=== PATIENT | male | born 1940 | race Caucasian/White ===

== ENCOUNTER 2018-01-29 14:01 | Day surgery (SDC) | payer MEDICARE, OTHER, SELFPAY ==
[2018-01-29] VITALS (7 sets, daily range): BP systolic 150–175; BP diastolic 94–97; PULSE 81–97; RESP 15–16; TEMP 36.2–36.4; O2SAT 94–98; BMI 29.1
--- NOTE | 2018-01-29 | DI.RAD.S_ITS ---
PROCEDURE: XR THORACIC SPINE 3V INDICATIONS: T10 KYPHOPLASTY TECHNIQUE: 4 intraoperative fluoroscopic views of the thoracic spine were acquired. COMPARISON: None. FINDINGS: Bones: Intraoperative fluoroscopic images of thoracolumbar junction shows anterior wedge compression deformity of a lower thoracic vertebral body with subsequent kyphoplasty. Exact level cannot be definitively determined. IMPRESSION: Pleural guidance was provided intraoperatively for kyphoplasty of a lower thoracic spine vertebral body. Dictated by: Angus Parker M.D. on 01/29/2018 at 18:13 Approved by: Angus Parker M.D. on 01/29/2018 at 18:14
--- NOTE | 2018-01-29 | PATH_ITS ---
[facility] Accession Number: [id number] . 01 Material submitted: . T-10 BONE . 02 Diagnosis: T10 Bone: Fragments of bone and fibrotic marrow. Negative for malignancy. MRV/02/01/2018 . 02 Electronically signed: . Larry Singer MD, PhD, Pathologist NPI- [id number] . 01 Gross description: . Received one formalin-filled container labeled with the patient's name and labeled T-10. The specimen consists of a 0.3 cm in diameter x 0.5 cm in length portion of bone. The specimen is entirely submitted in one cassette. Will be placed in decal for softening. [place] [id number] . 02 Pathologist provided ICD-10: M40.204 . 02 CPT . 976519 Specimen Comment: A duplicate report has been generated due to demographic updates. Performed at: 01 [facility] [address] [id number] MD Anthony Barber MD Phone: [phone] Performed at: 02 [facility] [address] [place], [place] [id number] MD Gm Jarquin MD Phone: [phone]
[2018-01-29] MEDS: LACTATED RINGERS 1,000 ML 42 ML IV (14:47)
--- NOTE | 2018-01-29 16:28 | SUR.OPER ---
Prone on spine table, head in foam head support, padded chest and pelvic supports, gel pad at knees, lower legs supported by pillows; nipples, genitalia and toes free of pressure, arms secured on foam padded arm boards at <90 degrees abduction. Tape over blanket at thigh secured to table.
--- NOTE | 2018-01-29 16:48 | PM.PREOP ---
Pre-operative Note Interval Note Pre-op Check: Yes History & Physical Reviewed by Physician and Yes Exam Performed Changes: No
[2018-01-29] MEDS: CEFAZOLIN 2 GM/100 ML FROZ.PIGGY IV (17:00)
--- NOTE | 2018-01-29 17:05 | P.OP_ITS ---
Operative Date/Time/Diagnoses Date of procedure: 01/29/18 Time of procedure: 17:40 Pre-op diagnosis: T10 compression fracture Back pain Post-op diagnosis: same Procedure & Clinicians Procedure: T10 kyphoplasty Same procedure as scheduled: Yes Indications: [age] year old male with intractable pain from a T10 compression fracture. They had failed conservative management and requested operative intervention. Risks and benefits of surgery were discussed and appropriate consents were obtained. Surgeon: Dyllan Guzman Click Yes if Unassisted: Yes Anesthesia Type: General Operative Notes Findings: none Closure Type: primary Specimen(s): other (T10 body) Estimated Blood Loss (mL): 1 Procedure in detail: The patient was brought to the operating room and intubated on the table. They were then rolled over to the well-padded prone position. Time-out was performed. We confirmed positioning with two fluoroscopy views. The back was prepped and draped in the standard sterile fashion. Preoperative antibiotics were given. Using fluoroscopic guidance, the planned incision site was infiltrated with Marcaine with epinephrine and injected down to the entry site of the left pedicle of T10. A small stab incision was made and we advanced a Jamshiedi needle down the left pedicle into the vertebral body. A bone biopsy was harvested from this and sent to pathology. We then passed the DFine osteotome and opened it up to create a void inside the vertebral body. We then began injecting the cement. This was done with frequent fluoroscopy imaging. There was no extravasation. The cement filled densley through all the bone inferior to the superior compression. Once we had good fill of the T10 vertebral body the injection was stopped and the trocars were removed. Final x- rays were taken. The wound was cleaned. Steri-Strips and sterile dressing were placed. Patient was rolled over, extubated, and brought to recovery without complications. Complications: none Condition: stable Disposition: PACU Plan for aftercare: Outpatient. Activity as tolerated.
[2018-01-29] MEDS: BUPIVACAINE 0.25% W/ EPI VIAL 50 ML INJ (17:20)
== END 2018-01-29 18:25 | disposition home or self-care (01) ==
PROVIDERS: Visit Provider Orthopaedic Surgery
PROC: (CPT 22513; principal; 2018-01-29 16:15)
DX: S22.070A Wedge compression fracture of T9-T10 vertebra, initial encounter for closed fracture (principal); M54.9 Dorsalgia, unspecified; M19.90 Unspecified osteoarthritis, unspecified site; G47.33 Obstructive sleep apnea (adult) (pediatric); E66.9 Obesity, unspecified
CPT/HCPCS: 22513; 72074; 76001; 88305; C1776; J0690; J2405; J2704; J3010

== ENCOUNTER → 2018-08-23 09:23 | Outpatient (CLI) | payer MEDICARE, OTHER, SELFPAY ==
--- NOTE | 2018-08-23 09:25 | DI.RAD.S_ITS ---
PROCEDURE: FL UPPER GI W AIR INDICATIONS: Persistant nausea COMPARISON: None. 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 No suspicious abdominal calcifications. Visualized solid organ contours appear normal. Bony structures appear unremarkable. Esophagus: Esophageal mucosa is normal on air-contrast views. On single-contrast views, there is decreased esophageal peristalsis. No strictures, extrinsic mass effects, or diverticula. No hiatal hernia. There is spontaneous mild gastroesophageal reflux. Stomach: The stomach is normally distensible, with normal rugal fold thickness. No mucosal masses or ulcers. Pylorus and duodenal bulb appear normal in morphology. Duodenal folds are normal in thickness as well. IMPRESSION: Esophageal dysmotility. Spontaneous mild gastroesophageal reflux Dictated by: Ketan Shields M.D. on 08/23/2018 at 11:04 Approved by: Ketan Shields M.D. on 08/23/2018 at 11:05
== END ==
PROVIDERS: PCP Internal Medicine; Visit Provider Surgery
DX: R11.0 Nausea (principal); K22.4 Dyskinesia of esophagus; K21.9 Gastro-esophageal reflux disease without esophagitis
CPT/HCPCS: 74247

== ENCOUNTER 2018-10-21 14:09 | Emergency (ER) | payer MEDICARE, OTHER, SELFPAY ==
[2018-10-21 14:16] VITALS: BP 142/96; PULSE 96; RESP 31; TEMP 36.7; BMI 25.7
--- NOTE | 2018-10-21 14:26 | DI.CT.S_ITS ---
PROCEDURE: CT ABDOMEN PELVIS WO CON INDICATIONS: diarrhea x 1 month, 4x daily, no pain, no blood. TECHNIQUE: After the administration of oral contrast, 5 mm thick sections acquired from the diaphragms to the symphysis. 5 mm coronal and sagittal reformats were performed. For radiation dose reduction, the following was used: automated exposure control, adjustment of mA and/or kV according to patient size. COMPARISON: None. FINDINGS: Image quality: Excellent. ABDOMEN: Lung bases: Rounded atelectasis, right lung base. Heart size is normal. Solid organs: Liver is normal in size. Gallbladder is unremarkable. Pancreas is normal in size. Spleen is normal in size. No adrenal nodules. Both kidneys are normal in size, without hydronephrosis or nephrolithiasis. Multiple renal cysts. The Peritoneum and bowel: Mild diffuse right colonic wall thickening. No dilated loops. Extensive sigmoid diverticulosis without evidence of diverticulitis. No free air, free fluid, or abscess cavity Nodes and vessels: No retroperitoneal or mesenteric adenopathy by size criteria. Aorta and inferior vena cava are normal in size. Atherosclerosis. Miscellaneous: No ventral hernias. PELVIS: Genitourinary: Bladder wall thickness is normal. Prostate enlargement. Miscellaneous: No inguinal hernias or adenopathy. Bones: No suspicious bony lesions. No acute vertebral body compressions. Previously treated T10 compression fracture grade moderate chronic L1 compression fracture. IMPRESSION: 1. Rounded atelectasis, right lower lobe. 2. Diffuse mild thickening of the wall of the right colon. Findings are consistent with ischemic versus infectious versus inflammatory colitis. 3. Extensive sigmoid diverticulosis without evidence of diverticulitis. 4. Prostate enlargement. 5. Atherosclerosis. 6. Osteoporosis with old compression fractures. Dictated by: Jacob Warner M.D. on 10/21/2018 at 16:20 Approved by: Jacob Warner M.D. on 10/21/2018 at 16:29
--- NOTE | 2018-10-21 14:28 | ED.NAVMDI ---
HPI - Nausea/Vomiting/Diarrhea General Chief complaint: Nausea/Vomiting/Diarrhea Stated complaint: fatigue,bedridden,diarrhea 3 weeks Time Seen by Provider: 10/21/18 14:14 Source: patient and family (Sister) Mode of arrival: wheelchair Limitations: no limitations History of Present Illness HPI Narrative: This is a pleasant 78-year-old male who comes to the emergency department with complaint of diarrhea. Patient states he has had fatigue and depression ongoing. He states that is probably part of the issue but he has also had chronic diarrhea for over a month. Patient states at the beginning of August he was started on Reglan, this was for some esophageal dysmotility. He had had an upper GI which showed that there was dysmotility. He states he got diarrhea immediately he stopped it and then tried to restarted on September 06. He took Reglan only on the and stopped and has continued to have diarrhea 4-5 times daily. Sometimes he does not realize occurring like when he is asleep and he will have incontinence. Other times he realizes coming in he can make it to the restroom. He does not always have time to make it to the bathroom. He has not noticed any decrease in urination. He states his urine is dark but it is always kind of dark. He denies any abdominal pain. He has been slightly distended but states that is not new. He is not having any vomiting. He was having nausea but they believed that this was from the dysmotility and after he started the medications not has been better. Patient has not had any fevers, he denies any chest pain or shortness of breath. He states he does have a history of CABG with valve replacement as well as bypass and Maze procedure. He has had prostate surgery, he has chronic kidney disease, and has back surgery with Dr. Guzman. Related Data Home Medications Medication Instructions Recorded Confirmed allopurinol 300 mg PO DAILY 01/29/18 10/21/18 amlodipine 5 mg PO BEDTIME 01/29/18 10/21/18 aspirin 325 mg PO BEDTIME 01/29/18 10/21/18 carvedilol 12.5 mg PO BID 01/29/18 10/21/18 colchicine [Colcrys] 0.3 mg PO DAILY 01/29/18 10/21/18 docusate sodium 200 mg PO DAILY 01/29/18 10/21/18 finasteride 5 mg PO BEDTIME 01/29/18 10/21/18 furosemide 40 mg PO QAM 01/29/18 10/21/18 pantoprazole 40 mg PO BID 01/29/18 10/21/18 potassium chloride 20 meq PO DAILY 01/29/18 10/21/18 tamsulosin 0.8 mg PO BEDTIME 01/29/18 10/21/18 zolpidem 10 mg PO BEDTIME PRN 01/29/18 10/21/18 acyclovir 400 mg tablet 400 mg PO ONCE PRN tab 08/21/18 10/21/18 Glucosamine 1 - 2 tbsp PO DAILY 10/21/18 10/21/18 Optifiber 4 tsp PO DAILY 10/21/18 10/21/18 acetaminophen 1 dose PO PRN PRN 10/21/18 10/21/18 cholecalciferol (vitamin D3) 2,000 unit PO DAILY 10/21/18 10/21/18 [Vitamin D3] cyanocobalamin (vitamin B-12) 2,500 mcg SUBLINGUAL DAILY 10/21/18 10/21/18 [Vitamin B-12] doxylamine succinate 25 mg PO BEDTIME PRN 10/21/18 10/21/18 flaxseed oil 1,400 mg PO Q OTHER DAY 10/21/18 10/21/18 multivitamin 1 tab PO DAILY 10/21/18 10/21/18 [id number] oil [Fish 1,200 mg PO Q OTHER DAY 10/21/18 10/21/18 Oil] red yeast rice 600 mg PO BID 10/21/18 10/21/18 Previous Rx's Medication Instructions Recorded prednisone See Rx Instructions .ROUTE 10/21/18 .COMPLEX #31 each Allergies Allergy/AdvReac Type Severity Reaction Status Date / Time No Known Drug Allergies Allergy Verified 10/21/18 14:19 Review of Systems Review of Systems ROS Unobtainable: All systems reviewed & are unremarkable except as noted in HPI and below Constitutional Denies chills, Denies fever(s), Denies lethargy and Denies weakness Cardiovascular Denies chest pain, Denies syncope, Denies edema, Denies irregular heart rhythm, Denies lightheadedness, Denies palpitations, Denies dyspnea, Denies dyspnea on exertion and Denies orthopnea Respiratory Denies chest congestion, Denies cough, Denies dyspnea, Denies dyspnea on exertion and Denies wheezing Gastrointestinal Gastrointestinal: Denies abdominal pain, Denies melena, Denies hematochezia, Denies change in bowel habits, Denies tenesmus, Reports change in stool character, Denies constipation, Reports early satiety, Denies dyspepsia, Reports diarrhea, Reports loose stools, Reports nausea (improving) and Denies vomiting Genitourinary Denies hematuria, Denies flank pain, Denies urinary frequency, Denies urinary hesitancy, Denies urinary incontinence, Denies urinary urgency and Reports other (dark urine, patient states not new.) Neurologic Denies syncope and Denies weakness Endocrine Denies palpitations Allergic/Immunologic Denies wheezing [facility] Medical History (Updated 10/21/18 @ 16:37 by Clementine Benson DO) CKD (chronic kidney disease) stage 3, GFR 30-59 ml/min (Chronic) Dyslipidemia (Chronic) Hypertension (Chronic) Family History Father Heart disease Social History household members: significant other occupational status: previously employed Social History (Updated 10/21/18 @ 14:37 by Clementine Benson DO) details: partner. household members: significant other occupational status: previously employed other: Lives in duplex with partner, sister and her spouse live on the other side. Exam Narrative Exam Narrative: GEN: well nourished, well appearing elderly male, alert and oriented x 3, patient appears to be in no acute distress. HEENT: Atraumatic, pupils are equal round reactive to light, extraocular movements are intact, nares are clear. HEART: Regular rate and rhythm without murmur, clicks, rubs. LUNGS:Lungs clear to auscultation, no wheezes, rales, crackles, chest moves symmetrically ABD:bowel sounds normal, soft, non-tender, no guarding, rebound, rigidity, no masses noted, no hepatosplenomegaly :No CVA tenderness MSCL: Non-tender, no muscle atrophy, muscles strength 5/5 upper and lower extremities, full range of motion NEURO:CN 2-12 intact, sensation normal Initial Vital Signs Initial Vital Signs: Vital Signs Temperature 98.0 F 10/21/18 14:16 Pulse Rate 96 H 10/21/18 14:16 Respiratory Rate 31 H 10/21/18 14:16 Blood Pressure 142/96 H 10/21/18 14:16 Course Orders Ordered: ED Orders 10/21/18 14:20 Complete Blood Count AUTO DIFF Stat Comprehensive Metabolic Panel Stat Lipase Stat Procalcitonin Stat Thyroid Stimulating Hormone Stat Troponin & CK Cardiac Panel Stat 10/21/18 14:26 CT abdomen pelvis wo con Stat 10/21/18 15:40 GI Panel (Film Array) Stat Discontinued Medications Sodium Chloride (Normal Saline 0.9%) 1,000 mls @ 1,000 mls/hr IV BOLUS ONE Stop: 10/21/18 15:25 Last Infusion: 10/21/18 16:27 Dose: 0 mls/hr Admin: 10/21/18 14:30 Dose: 1,000 mls/hr Methylprednisolone (Solu-Medrol 125 Mg Vial) 125 mg IV NOW ONE Stop: 10/21/18 16:38 Last Admin: 10/21/18 17:29 Dose: 125 mg Vital Signs - 8 hr 10/21/18 14:16 10/21/18 15:39 10/21/18 16:00 Temperature 98.0 F Pulse Rate 96 H 82 85 Respiratory Rate 31 H 20 Blood Pressure 142/96 H Blood Pressure [Right Arm] 143/90 H 124/81 Pulse Oximetry 99 10/21/18 16:15 10/21/18 17:30 Temperature Pulse Rate 85 83 Respiratory Rate 19 15 Blood Pressure Blood Pressure [Right Arm] 117/72 128/85 Pulse Oximetry 98 98 MDM - Nausea/Vomiting/Diarrhea Lab Data Attestation: I reviewed the patient's lab results. Result diagrams: 10/21/18 14:20 10/21/18 14:20 Lab Results 10/21/18 10/21/18 10/21/18 Range/Units 14:20 14:20 14:20 WBC 6.7 (4.5-11.0) X10^3/uL RBC 4.68 (4.5-5.9) X10^6/uL Hgb 14.5 (13.5-17.5) g/dL Hct 43.4 (41-53) % MCV 92.7 (80-100) fL MCH 31.0 (26-34) PG MCHC 33.4 (30-36) % RDW 14.8 (11.6-14.8) % Plt Count 162 (150-400) X10^3/uL Neut % (Auto) 66.9 (50-75) % Lymph % (Auto) 16.5 L (25-40) % [place] % (Auto) 13.9 (3-14) % Eos % (Auto) 1.9 L (2-4) % Baso % (Auto) 0.8 (0-2) % Neut # (Auto) 4500 (7281-3577) /uL Lymph # (Auto) 1100 (4319-4895) /uL [place] # (Auto) 900 (0-900) /uL Eos # (Auto) 100 (0-450) /uL Baso # (Auto) 100 (0-100) /uL Sodium 143 (137-145) mmol/L Potassium 4.3 (3.4-5.1) mmol/L Chloride 102 (98-107) mmol/L Carbon Dioxide 28 (22-32) mmol/L BUN 37 H (9-20) mg/dL Creatinine 2.20 H (0.66-1.25) mg/dL Estimated GFR 29.2 L (>60) mL/min BUN/Creatinine Ratio 16.8 (6-22) Glucose 106 (80-110) mg/dL Calcium 10.1 (8.4-10.2) mg/dL Total Bilirubin 0.7 (0.2-1.3) mg/dL AST 29 (17-59) IU/L ALT 20 L (21-72) IU/L Alkaline Phosphatase 76 (38-126) U/L Total Creatine Kinase (55-170) U/L CK-MB (CK-2) CK-MB (CK-2) Rel Index Troponin I (0.01-0.034) ng/mL Total Protein 7.4 (6.3-8.2) g/dL Albumin 4.2 (3.5-5.0) g/dL Globulin 3.2 (1.7-4.1) g/dL Albumin/Globulin Ratio 1.3 (1.0-2.8) Lipase 108 (23-300) U/L Procalcitonin 0.09 (<0.5) ng/mL TSH (0.47-4.68) uIU/mL Stl C. cayetanensis PCR (Not Detect) Stool Rotavirus (PCR) (Not Detect) Stool Adenovirus (PCR) (Not Detect) Stool Astrovirus (PCR) (Not Detect) Stool Cryptosporidium PCR (Not Detect) Stl E.coli Shiga Tox PCR (Not Detect) St Sh/Enteroin Ecoli PCR (Not Detect) Stool E coli O157 PCR Stl Enterotoxigenic E PCR (Not Detect) Stool EPEC (PCR) (Not Detect) Stl E. histolytica PCR (Not Detect) Stool Giardia Lamblia PCR (Not Detect) Stl P. shigelloides PCR (Not Detect) St Y.enterocolitica PCR (Not Detect) Stool Vibrio (PCR) (Not Detect) Stl Vibrio cholerae PCR (Not Detect) Stl Enteroaggr Ecoli PCR (Not Detect) Stl Norovirus GI/GII PCR (Not Detect) Campylobacter (PCR) (Not Detect) C. difficile Tox (PCR) (Not Detect) Salmonella (PCR) (Not Detect) 10/21/18 10/21/18 10/21/18 Range/Units 14:20 14:20 15:40 WBC (4.5-11.0) X10^3/uL RBC (4.5-5.9) X10^6/uL Hgb (13.5-17.5) g/dL Hct (41-53) % MCV (80-100) fL MCH (26-34) PG MCHC (30-36) % RDW (11.6-14.8) % Plt Count (150-400) X10^3/uL Neut % (Auto) (50-75) % Lymph % (Auto) (25-40) % [place] % (Auto) (3-14) % Eos % (Auto) (2-4) % Baso % (Auto) (0-2) % Neut # (Auto) (0749-6872) /uL Lymph # (Auto) (9535-4130) /uL [place] # (Auto) (0-900) /uL Eos # (Auto) (0-450) /uL Baso # (Auto) (0-100) /uL Sodium (137-145) mmol/L Potassium (3.4-5.1) mmol/L Chloride (98-107) mmol/L Carbon Dioxide (22-32) mmol/L BUN (9-20) mg/dL Creatinine (0.66-1.25) mg/dL Estimated GFR (>60) mL/min BUN/Creatinine Ratio (6-22) Glucose (80-110) mg/dL Calcium (8.4-10.2) mg/dL Total Bilirubin (0.2-1.3) mg/dL AST (17-59) IU/L ALT (21-72) IU/L Alkaline Phosphatase (38-126) U/L Total Creatine Kinase 30 L (55-170) U/L CK-MB (CK-2) TNP CK-MB (CK-2) Rel Index TNP Troponin I 0.017 (0.01-0.034) ng/mL Total Protein (6.3-8.2) g/dL Albumin (3.5-5.0) g/dL Globulin (1.7-4.1) g/dL Albumin/Globulin Ratio (1.0-2.8) Lipase (23-300) U/L Procalcitonin (<0.5) ng/mL TSH 1.57 (0.47-4.68) uIU/mL Stl C. cayetanensis PCR Not detected (Not Detect) Stool Rotavirus (PCR) Not detected (Not Detect) Stool Adenovirus (PCR) Not detected (Not Detect) Stool Astrovirus (PCR) Not detected (Not Detect) Stool Cryptosporidium PCR Not detected (Not Detect) Stl E.coli Shiga Tox PCR Not detected (Not Detect) St Sh/Enteroin Ecoli PCR Not detected (Not Detect) Stool E coli O157 PCR Not Reportable Stl Enterotoxigenic E PCR Not detected (Not Detect) Stool EPEC (PCR) Not detected (Not Detect) Stl E. histolytica PCR Not detected (Not Detect) Stool Giardia Lamblia PCR Not detected (Not Detect) Stl P. shigelloides PCR Not detected (Not Detect) St Y.enterocolitica PCR Not detected (Not Detect) Stool Vibrio (PCR) Not detected (Not Detect) Stl Vibrio cholerae PCR Not detected (Not Detect) Stl Enteroaggr Ecoli PCR Not detected (Not Detect) Stl Norovirus GI/GII PCR Not detected (Not Detect) Campylobacter (PCR) Not detected (Not Detect) C. difficile Tox (PCR) Not detected (Not Detect) Salmonella (PCR) Not detected (Not Detect) Point of Care Testing Stool Occult Blood Negative Urine Dip Bedside Urine Glucose Negative Bedside Urine Bilirubin - Negative Bedside Urine Ketone - Negative Urine Specific [place] 1.015 Bedside Urine Occult Blood - Negative Bedside Urine pH 6.0 Bedside Urine Protein - Negative Bedside Urine Urobilinogen - Negative Bedside Urine Nitrite - Negative Bedside Urine Leukocytes - Negative Esterase Imaging Data CT scan - abdomen: Radiologist's impression: [address] [address] [address] Scan Report Signed Patient: Jaxon Clemons [facility]#: [id number] : 2Acct:[id number] Age/Sex: 78 / MDate of Service: 10/21/18 Loc: ED Accession Number: [id number] Procedure: CT abdomen pelvis wo con Ordering Provider: Clementine Benson D.O. PROCEDURE: CT ABDOMEN PELVIS WO CON INDICATIONS: diarrhea x 1 month, 4x daily, no pain, no blood. TECHNIQUE: After the administration of oral contrast, 5 mm thick sections acquired from the diaphragms to the symphysis. 5 mm coronal and sagittal reformats were performed. For radiation dose reduction, the following was used: automated exposure control, adjustment of mA and/or kV according to patient size. COMPARISON: None. FINDINGS: Image quality: Excellent. ABDOMEN: Lung bases: Rounded atelectasis, right lung base. Heart size is normal. Solid organs: Liver is normal in size. Gallbladder is unremarkable. Pancreas is normal in size. Spleen is normal in size. No adrenal nodules. Both kidneys are normal in size, without hydronephrosis or nephrolithiasis. Multiple renal cysts. The Peritoneum and bowel: Mild diffuse right colonic wall thickening. No dilated loops. Extensive sigmoid diverticulosis without evidence of diverticulitis. No free air, free fluid, or abscess cavity Nodes and vessels: No retroperitoneal or mesenteric adenopathy by size criteria. Aorta and inferior vena cava are normal in size. Atherosclerosis. Miscellaneous: No ventral hernias. PELVIS: Genitourinary: Bladder wall thickness is normal. Prostate enlargement. Miscellaneous: No inguinal hernias or adenopathy. Bones: No suspicious bony lesions. No acute vertebral body compressions. Previously treated T10 compression fracture grade moderate chronic L1 compression fracture. IMPRESSION: 1. Rounded atelectasis, right lower lobe. 2. Diffuse mild thickening of the wall of the right colon. Findings are consistent with ischemic versus infectious versus inflammatory colitis. 3. Extensive sigmoid diverticulosis without evidence of diverticulitis. 4. Prostate enlargement. 5. Atherosclerosis. 6. Osteoporosis with old compression fractures. Dictated by: Jacob Warner M.D. on 10/21/2018 at 16:20 Approved by: Jacob Warner M.D. on 10/21/2018 at 16:29 ECG Data Attestation: I personally reviewed and interpreted this ECG as follows: Prior ECG tracings: not available for review Interpretation: Sinus rhythm incomplete right bundle branch, rate 85 P are 156 stress a 99 QTC of 428. No prior EKGs available. MDM Narrative Medical decision making narrative: Patient's lab work does not show any major abnormalities, CBC is normal, creatinine is 2.2. Per patient his baseline is around the 2.4 to 2.2 range he states he has chronic kidney disease and follows with a electric lineman. He states he has stage III his troponin as well as abdominal labs are otherwise normal. TSH and procalcitonin are negative. Stool is negative. CT of the abdomen pelvis with oral contrast shows thickening of the colon consistent with colitis, patient has no suspicious findings for ischemic colitis, with a normal white count procalcitonin negative PCR my suspicion for infectious is much lower and I suspect this is inflammatory he has diverticulosis but no signs of diverticulitis. Plan for steroids, patient has also been depressed recently. No suicidal thoughts but we discussed that he should talk to his doctor. Being ill can also make any mental health issues worse. Patient is comfortable with the plan he would like to return home. We discussed signs symptoms to watch for and reasons to return emergently. Discharge Plan Departure Patient Disposition: Home Clinical Impression: Diarrhea, Colitis Instructions: DI for Colitis Activity Restrictions/Additional Instructions: Follow-up with your primary care the next 24-48 hours for recheck, call for an appointment. Continue prednisone once daily until gone. Start your oral prednisone tomorrow, you received the 1st dose through the IV here in the ER today. Take prednisone with food. Return to the emergency department for fevers greater than 100.4 F black or bloody stools, lightheadedness or passing out, new chest pain, shortness of breath, new abdominal pain, if you are not urinating or other new or concerning symptoms. Prescriptions: New prednisone 10 mg tablets,dose pack See Rx Instructions .ROUTE .COMPLEX Qty: 31 RF: 0 No Action acyclovir 400 mg tablet 400 mg PO ONCE PRN (Reason: for cold sores) RF: 0 acetaminophen 325 mg Tablet 1 dose PO PRN PRN (Reason: pain) RF: 0 doxylamine succinate 25 mg Tablet 25 mg PO BEDTIME PRN (Reason: Insomnia) RF: 0 Glucosamine powder 1 - 2 tbsp PO DAILY RF: 0 Optifiber powder 4 tsp PO DAILY RF: 0 multivitamin Tablet 1 tab PO DAILY RF: 0 cyanocobalamin (vitamin B-12) [Vitamin B-12] 2,500 mcg Tablet, Sublingual 2,500 mcg SUBLINGUAL DAILY RF: 0 red yeast rice 600 mg Capsule 600 mg PO BID RF: 0 cholecalciferol (vitamin D3) [Vitamin D3] 2,000 unit Capsule 2,000 unit PO DAILY RF: 0 Fish Oil 120 mg-180 mg- 60 mg-1,200 mg Capsule,Delayed Release(Dr/Ec) 1,200 mg PO Q OTHER DAY RF: 0 flaxseed oil 1,400 mg 1,400 mg PO Q OTHER DAY RF: 0 furosemide 40 mg Tablet 40 mg PO QAM RF: 0 carvedilol 12.5 mg Tablet 12.5 mg PO BID RF: 0 aspirin 325 mg Tablet 325 mg PO BEDTIME RF: 0 amlodipine 5 mg Tablet 5 mg PO BEDTIME RF: 0 tamsulosin 0.4 mg Capsule 0.8 mg PO BEDTIME RF: 0 pantoprazole 40 mg Tablet,Delayed Release (Dr/Ec) 40 mg PO BID RF: 0 allopurinol 300 mg Tablet 300 mg PO DAILY RF: 0 zolpidem 10 mg Tablet 10 mg PO BEDTIME PRN (Reason: Insomnia) RF: 0 colchicine [Colcrys] 0.6 mg Tablet 0.3 mg PO DAILY RF: 0 docusate sodium 100 mg Tablet 200 mg PO DAILY RF: 0 finasteride 5 mg Tablet 5 mg PO BEDTIME RF: 0 potassium chloride 20 mEq Tablet Extended Release 20 meq PO DAILY RF: 0 Referrals: Isai Hughes MD [Primary Care Provider] -
[2018-10-21] MEDS: SODIUM CHLORIDE 0.9% 1,000 ML 1000 ML IV (14:30)
[2018-10-21 14:35] LABS: Add Manual Diff / Slide Review NO; Basophils Absolute Auto 100 /uL (0-100); Basophils Percent Auto 0.8 % (0-2); Eosinophils Absolute Auto 100 /uL (0-450); Eosinophils Percent Auto 1.9 % (2-4); Hematocrit 43.4 % (41-53); Hemoglobin 14.5 g/dL (13.5-17.5); Lymphocytes Absolute Auto 1100 /uL (1100-4500); Lymphocytes Percent Auto 16.5 % (25-40); Mean Corpuscular HGB Conc 33.4 % (30-36); Mean Corpuscular Volume 92.7 fL (80-100); Monocytes Absolute Auto 900 /uL (0-900); Monocytes Percent Auto 13.9 % (3-14); Neutrophils Absolute Auto 4500 /uL (1500-7000); Neutrophils Percent Auto 66.9 % (50-75); Platelet Count 162 X10^3/uL (150-400); Red Blood Cell Count 4.68 X10^6/uL (4.5-5.9); Red Cell Distribution Width 14.8 % (11.6-14.8); White Blood Cell Count 6.7 X10^3/uL (4.5-11.0)
[2018-10-21 14:44] LABS: Alanine Aminotransferase 20 IU/L (21-72); Albumin 4.2 g/dL (3.5-5.0); Albumin Globulin Ratio 1.3 (1.0-2.8); Alkaline Phosphatase 76 U/L (38-126); Aspartate Aminotransferase 29 IU/L (17-59); BUN Creatinine Ratio 16.8 (6-22); Bilirubin Total 0.7 mg/dL (0.2-1.3); Blood Urea Nitrogen 37 mg/dL (9-20); Calcium 10.1 mg/dL (8.4-10.2); Carbon Dioxide 28 mmol/L (22-32); Chloride 102 mmol/L (98-107); Creatine Kinase 30 U/L (55-170); Estimated Glomerular Filt Rate 29.2 mL/min (>60); Globulin 3.2 g/dL (1.7-4.1); Glucose 106 mg/dL (80-110); HEMOLYSIS 17 (0-50); Lipase 108 U/L (23-300); Potassium 4.3 mmol/L (3.4-5.1); Sodium 143 mmol/L (137-145); Total Protein 7.4 g/dL (6.3-8.2)
[2018-10-21 14:56] LABS: Troponin I 0.017 ng/mL (0.01-0.034)
[2018-10-21 15:06] LABS: Procalcitonin 0.09 ng/mL (<0.5)
[2018-10-21 15:26] LABS: Thyroid Stimulating Hormone 1.57 uIU/mL (0.47-4.68)
[2018-10-21 15:39] VITALS: BP 143/90; PULSE 82; O2SAT 99
[2018-10-21 16:00] VITALS: BP 124/81; PULSE 85; RESP 20
[2018-10-21 16:15] VITALS: BP 117/72; PULSE 85; RESP 19; O2SAT 98
[2018-10-21 17:14] LABS: Adenovirus F 40/41 Not Detected (Not Detect); Astrovirus Not Detected (Not Detect); Campylobacter Not Detected (Not Detect); Clostridium difficile toxin AB Not Detected (Not Detect); Cryptosporidium Not Detected (Not Detect); Cyclospora cayetanensis Not Detected (Not Detect); Entamoeba histolytica Not Detected (Not Detect); Enteroaggregative E.coli Not Detected (Not Detect); Enteropathogenic E.coli Not Detected (Not Detect); Enterotoxigenic E.coli It/st Not Detected (Not Detect); Giardia lamblia Not Detected (Not Detect); Norovirus GI/GII Not Detected (Not Detect); Plesiomonsa shigelloides Not Detected (Not Detect); Rotavirus A Not Detected (Not Detect); Salmonella Not Detected (Not Detect); Shiga-like toxin-prod E.coli Not Detected (Not Detect); Shigella/Enteroinvasive E.coli Not Detected (Not Detect); Vibrio Not Detected (Not Detect); Vibrio cholerae Not Detected (Not Detect); Yersinia enterocolitica Not Detected (Not Detect)
[2018-10-21] MEDS: methylPREDNISolone 125 MG/2 ML VIAL IV (17:29)
[2018-10-21 17:30] VITALS: BP 128/85; PULSE 83; RESP 15; O2SAT 98
[2018-10-21 18:40] VITALS: BP 118/75; PULSE 87; RESP 16; O2SAT 98
== END 2018-10-21 18:40 | disposition home or self-care (01) ==
PROVIDERS: Emergency Provider Emergency Medicine; PCP Internal Medicine
DX: K52.9 Noninfective gastroenteritis and colitis, unspecified (principal); R53.83 Other fatigue; Z95.1 Presence of aortocoronary bypass graft; N18.3 Chronic kidney disease, stage 3 (moderate); I10 Essential (primary) hypertension; Z79.82 Long term (current) use of aspirin
CPT/HCPCS: 36591; 74176; 80053; 81003; 82272; 82550; 83690; 84145; 84443; 84484; 85025; 87507; 93005; 93010; 96361; 96374; 99283; 99285; J2930

== ENCOUNTER 2018-11-05 11:00 | Emergency (ER) | payer MEDICARE, OTHER, SELFPAY ==
[2018-11-05 11:05] VITALS: BP 118/76; PULSE 90; RESP 18; TEMP 36.5; O2SAT 98
[2018-11-05 11:49] LABS: Add Manual Diff / Slide Review NO; Basophils Absolute Auto 100 /uL (0-100); Basophils Percent Auto 0.7 % (0-2); Eosinophils Absolute Auto 100 /uL (0-450); Eosinophils Percent Auto 1.2 % (2-4); Hematocrit 40.6 % (41-53); Hemoglobin 13.7 g/dL (13.5-17.5); Lymphocytes Absolute Auto 1200 /uL (1100-4500); Lymphocytes Percent Auto 14.4 % (25-40); Mean Corpuscular HGB Conc 33.9 % (30-36); Mean Corpuscular Hemoglobin 31.5 PG (26-34); Mean Corpuscular Volume 92.9 fL (80-100); Monocytes Absolute Auto 600 /uL (0-900); Neutrophils Absolute Auto 6100 /uL (1500-7000); Neutrophils Percent Auto 75.7 % (50-75); Platelet Count 100 X10^3/uL (150-400); Red Blood Cell Count 4.37 X10^6/uL (4.5-5.9); Red Cell Distribution Width 15.5 % (11.6-14.8)
[2018-11-05 11:54] LABS: Prothrombin Time 11.8 SECONDS (10.1-12.7)
[2018-11-05 11:57] LABS: PTT Partial Thromboplastin Tim 29 SECONDS (26.4-36.2)
[2018-11-05 12:00] VITALS: BP 113/70; PULSE 83; O2SAT 94
[2018-11-05 12:00] LABS: Alanine Aminotransferase 23 IU/L (21-72); Albumin 4.1 g/dL (3.5-5.0); Albumin Globulin Ratio 1.3 (1.0-2.8); Alkaline Phosphatase 77 U/L (38-126); Aspartate Aminotransferase 22 IU/L (17-59); BUN Creatinine Ratio 16.4 (6-22); Blood Urea Nitrogen 36 mg/dL (9-20); Calcium 9.6 mg/dL (8.4-10.2); Carbon Dioxide 25 mmol/L (22-32); Chloride 100 mmol/L (98-107); Creatine Kinase < 20 U/L (55-170); Estimated Glomerular Filt Rate 29.2 mL/min (>60); Globulin 3.1 g/dL (1.7-4.1); Glucose 124 mg/dL (80-110); HEMOLYSIS < 15 (0-50); Lipase 255 U/L (23-300); Potassium 4.3 mmol/L (3.4-5.1); Sodium 139 mmol/L (137-145); Total Protein 7.2 g/dL (6.3-8.2)
[2018-11-05 12:12] LABS: B Type Natriuretic Peptide 113 (<100); Troponin I 0.036 ng/mL (0.01-0.034)
[2018-11-05 13:00] VITALS: BP 117/74; PULSE 83; RESP 15; O2SAT 94
--- NOTE | 2018-11-05 13:51 | ED.WEAKNESS ---
HPI - Weakness General Chief complaint: Weakness Stated complaint: weak,'getting a test' Time Seen by Provider: 11/05/18 11:23 Source: patient Mode of arrival: ambulatory Limitations: no limitations History of Present Illness HPI Narrative: Patient comes to the emergency department complaining of chronic nausea and weight loss. Patient has had issues with swallowing and nausea for the last 2-3 years, but states that his symptoms have been worse over the last few months. He had an upper GI in July, which showed esophageal dysmotility, after which he was put on Reglan. Patient states the Reglan helped, but that shortly after starting it, he developed diarrhea, which he attributed to the Reglan. States he stopped the Reglan immediately, but the diarrhea persisted. Patient was ultimately seen here in the emergency department, and diagnosed with colitis. Patient states his colitis is cleared up, and he has been on Zofran which has helped his nausea, but that he has gotten progressively weaker from not eating. Patient states he tries to eat, but feels as though the food does not want to go down, and so he does not eat very much. Patient states that now, he does not even want to think about eating because it seems like too much work to do so. Patient states he has a primary care physician in [place], and thinks his doctor wants him to get an endoscopy, but he is not sure. Dr. Thompson has seen the patient, and while the patient was on Reglan and doing better, she did note that EGD would not be planned for the immediate future. Patient denies fevers or chills. No abdominal pain. No other complaints at this time. Related Data Home Medications Medication Instructions Recorded Confirmed allopurinol 300 mg PO DAILY 01/29/18 11/05/18 amlodipine 5 mg PO BEDTIME 01/29/18 11/05/18 aspirin 325 mg PO BEDTIME 01/29/18 11/05/18 carvedilol 12.5 mg PO BID 01/29/18 11/05/18 docusate sodium 200 mg PO DAILY 01/29/18 11/05/18 finasteride 5 mg PO BEDTIME 01/29/18 11/05/18 furosemide 40 mg PO BID 01/29/18 11/05/18 pantoprazole 40 mg PO BID 01/29/18 11/05/18 potassium chloride 20 meq PO DAILY 01/29/18 11/05/18 tamsulosin 0.4 mg PO BID 01/29/18 11/05/18 zolpidem 10 mg PO BEDTIME PRN 01/29/18 11/05/18 acyclovir 400 mg tablet 400 mg PO PRN PRN tab 08/21/18 11/05/18 Glucosamine 1 - 2 tbsp PO DAILY 10/21/18 11/05/18 Optifiber 4 tsp PO DAILY 10/21/18 11/05/18 acetaminophen 1 dose PO PRN PRN 10/21/18 11/05/18 cholecalciferol (vitamin D3) 2,000 unit PO DAILY 10/21/18 11/05/18 [Vitamin D3] cyanocobalamin (vitamin B-12) 2,500 mcg SUBLINGUAL DAILY 10/21/18 11/05/18 [Vitamin B-12] doxylamine succinate 25 mg PO BEDTIME PRN 10/21/18 11/05/18 flaxseed oil 1,400 mg PO Q OTHER DAY 10/21/18 11/05/18 multivitamin 1 tab PO DAILY 10/21/18 11/05/18 [id number] oil [Fish 1,200 mg PO Q OTHER DAY 10/21/18 11/05/18 Oil] red yeast rice 600 mg PO BID 10/21/18 11/05/18 fluoxetine 40 mg PO DAILY 11/05/18 11/05/18 Allergies Allergy/AdvReac Type Severity Reaction Status Date / Time No Known Drug Allergies Allergy Verified 11/05/18 11:13 Review of Systems Constitutional Denies chills, Denies fever(s), Denies lethargy and Denies weakness Eyes Denies change in vision, Denies eye discharge, Denies irritation and Denies loss of vision ENT Ears, Nose, Mouth, and Throat: Denies change in voice, Denies neck pain and Denies sore throat Cardiovascular Denies chest pain, Denies irregular heart rhythm, Denies lightheadedness, Denies palpitations, Denies dyspnea, Denies dyspnea on exertion and Denies orthopnea Respiratory Denies cough, Denies dyspnea, Denies dyspnea on exertion and Denies wheezing Gastrointestinal Gastrointestinal: Denies abdominal pain, Denies change in bowel habits, Denies diarrhea, Reports nausea and Denies vomiting Genitourinary Denies hematuria, Denies flank pain, Denies urinary incontinence and Denies urinary urgency Musculoskeletal Denies neck pain Integumentary/Breasts Denies pruritus, Denies erythema, Denies rash and Denies wounds Neurologic Denies confusion, Denies loss of vision and Denies weakness Psychiatric Denies anxiety, Denies confusion, Denies depression, Denies homicidal ideation and Denies suicidal ideation Endocrine Denies palpitations Hematologic/Lymphatic Denies easy bruising Allergic/Immunologic Denies wheezing [facility] Medical History CKD (chronic kidney disease) stage 3, GFR 30-59 ml/min (Chronic) Dyslipidemia (Chronic) Hypertension (Chronic) Family History Father Heart disease Social History (Updated 10/21/18 @ 14:37 by Clementine Benson DO) details: partner. household members: significant other occupational status: previously employed other: Lives in duplex with partner, sister and her spouse live on the other side. Smoking Status: Never smoker Family History Father Heart disease Social History details: partner. household members: significant other occupational status: previously employed other: Lives in duplex with partner, sister and her spouse live on the other side. Smoking Status: Never smoker Exam Initial Vital Signs Initial Vital Signs: Vital Signs Temperature 97.7 F 11/05/18 11:05 Pulse Rate 90 11/05/18 11:05 Respiratory Rate 18 11/05/18 11:05 Blood Pressure 118/76 11/05/18 11:05 Pulse Oximetry 98 11/05/18 11:05 Const General: cooperative and well developed Nutritional Appearance: well nourished Orientation: alert, awake, oriented x3 and not confused [facility] Head: normocephalic and atraumatic Ears: external ears normal Nose: external nose normal and No nasal discharge Face and sinus: face symmetric and No dry mucous membranes Mouth: oral mucosae normal and moist mucous membranes Teeth and gingiva: dentition normal Eyes General: appearance normal, both eyes and all related structures Eyelids: eyelids normal Conjunctivae: conjunctivae normal Sclera: sclerae normal Pupils: PERRL EOM: EOM intact bilaterally Neck Neck: normal visual inspection, trachea midline, No lymphadenopathy, No midline deformity and No JVD Lymphatic: No lymphedema Chest Chest: normal inspection of the chest Resp Effort & Inspection: normal respiratory effort, able to speak in complete sentences, no respiratory distress and no use of accessory muscles Auscultation: clear to auscultation bilaterally, no rales, no rhonchi and no wheezes Cardio Rate: regular rate Rhythm: regular rhythm Heart Sounds: no click, no gallops, no murmurs and no rubs Pulses: normal peripheral pulses GI Inspection: non-distended Palpation: soft, no hepatosplenomegaly, No guarding, No pulsatile mass and No tender Back/Spine/Pelvis Back: No CVA tenderness Cervical Spine: cervical ROM normal and No pain with cervical ROM Thoracic/Lumbar Spine: thoracic and lumbar spine normal to inspection Skin General: no rashes or lesions noted, No jaundice and No petechiae Neuro General: alert, oriented x3, gait normal and no focal motor deficits Speech: speech normal Extrem General: full ROM, no clubbing, cyanosis or edema, no pedal edema and no calf tenderness Psych Appearance: well kempt Mental Status: mental status grossly normal Attitude: cooperative Thought Content: normal and suicidality Judgment: judgment good Course Course Narrative: The patient was worked up with laboratory studies, and treated with IV fluids. Speech pathology was consulted, and patient was given IV Zofran and soft food. Patient was found to be tolerating Ensure very well in the emergency department. I have discussed with the patient and his family that EGD is not performed emergently under the circumstances, and that he will need to follow up with Dr. Thompson to discuss EGD. I have spoken Dr. Thompson, and she states she is happy to see the patient again. We have discussed the usual indications for return. Orders Ordered: Discontinued Medications Sodium Chloride (Normal Saline 0.9%) 1,000 mls @ 1,000 mls/hr IV BOLUS ONE Stop: 11/05/18 15:01 Last Infusion: 11/05/18 15:17 Dose: 0 mls/hr Admin: 11/05/18 14:02 Dose: 1,000 mls/hr Ondansetron HCl (Zofran) 4 mg IV NOW ONE Stop: 11/05/18 13:52 Last Admin: 11/05/18 14:02 Dose: 4 mg Vital Signs - 8 hr 11/05/18 11:05 11/05/18 12:00 11/05/18 13:00 Temperature 97.7 F Pulse Rate 90 83 83 Respiratory Rate 18 15 Blood Pressure 118/76 Blood Pressure [Right Arm] 113/70 117/74 Pulse Oximetry 98 94 94 MDM - Weakness Medical Records Attestation: I reviewed the patient's medical records. Lab Data Attestation: I reviewed the patient's lab results. Result diagrams: 11/05/18 11:25 11/05/18 11:25 Lab Results 11/05/18 11/05/18 11/05/18 Range/Units 11:25 11:25 11:25 WBC 8.0 (4.5-11.0) X10^3/uL RBC 4.37 L (4.5-5.9) X10^6/uL Hgb 13.7 (13.5-17.5) g/dL Hct 40.6 L (41-53) % MCV 92.9 (80-100) fL MCH 31.5 (26-34) PG MCHC 33.9 (30-36) % RDW 15.5 H (11.6-14.8) % Plt Count 100 L (150-400) X10^3/uL Neut % (Auto) 75.7 H (50-75) % Lymph % (Auto) 14.4 L (25-40) % [place] % (Auto) 8.0 (3-14) % Eos % (Auto) 1.2 L (2-4) % Baso % (Auto) 0.7 (0-2) % Neut # (Auto) 6100 (1573-9740) /uL Lymph # (Auto) 1200 (0384-5046) /uL [place] # (Auto) 600 (0-900) /uL Eos # (Auto) 100 (0-450) /uL Baso # (Auto) 100 (0-100) /uL PT 11.8 (10.1-12.7) SECONDS INR 1.0 (0.9-1.3) APTT 29 (26.4-36.2) SECONDS Sodium 139 (137-145) mmol/L Potassium 4.3 (3.4-5.1) mmol/L Chloride 100 (98-107) mmol/L Carbon Dioxide 25 (22-32) mmol/L BUN 36 H (9-20) mg/dL Creatinine 2.20 H (0.66-1.25) mg/dL Estimated GFR 29.2 L (>60) mL/min BUN/Creatinine Ratio 16.4 (6-22) Glucose 124 H (80-110) mg/dL Calcium 9.6 (8.4-10.2) mg/dL Total Bilirubin 1.0 (0.2-1.3) mg/dL AST 22 (17-59) IU/L ALT 23 (21-72) IU/L Alkaline Phosphatase 77 (38-126) U/L Total Creatine Kinase < 20 L (55-170) U/L CK-MB (CK-2) TNP CK-MB (CK-2) Rel Index TNP Troponin I 0.036 H (0.01-0.034) ng/mL B-Natriuretic Peptide 113 H (<100) Total Protein 7.2 (6.3-8.2) g/dL Albumin 4.1 (3.5-5.0) g/dL Globulin 3.1 (1.7-4.1) g/dL Albumin/Globulin Ratio 1.3 (1.0-2.8) Lipase 255 (23-300) U/L Discharge Plan Departure Patient Disposition: Home Clinical Impression: Esophageal dysmotility, Nausea Discharge Date/Time: 11/05/18 17:14 Interventions: ED Discharge Assessment Last Done: 11/05/18 17:13 Instructions: DI for Nausea -- Adult Activity Restrictions/Additional Instructions: There are no acute issues with your labs. Your case has been discussed with Dr. Thompson, who states she will be happy to see you in clinic. Please call your office to make an appointment. In the meantime, please consider using the Reglan again to control your nausea and encourage eating. You may use the ondansetron along with this if you wish. Even if you do not have a great appetite, please at least try to drink 3 cans of Ensure every day. You may eat anything else, also, as tolerated. Please keep your follow-up appointment with your primary care physician, as well. Prescriptions: No Action acyclovir 400 mg tablet 400 mg PO PRN PRN (Reason: for cold sores) RF: 0 acetaminophen 325 mg Tablet 1 dose PO PRN PRN (Reason: pain) RF: 0 doxylamine succinate 25 mg Tablet 25 mg PO BEDTIME PRN (Reason: Insomnia) RF: 0 Glucosamine powder 1 - 2 tbsp PO DAILY RF: 0 Optifiber powder 4 tsp PO DAILY RF: 0 multivitamin Tablet 1 tab PO DAILY RF: 0 cyanocobalamin (vitamin B-12) [Vitamin B-12] 2,500 mcg Tablet, Sublingual 2,500 mcg SUBLINGUAL DAILY RF: 0 red yeast rice 600 mg Capsule 600 mg PO BID RF: 0 cholecalciferol (vitamin D3) [Vitamin D3] 2,000 unit Capsule 2,000 unit PO DAILY RF: 0 Fish Oil 120 mg-180 mg- 60 mg-1,200 mg Capsule,Delayed Release(Dr/Ec) 1,200 mg PO Q OTHER DAY RF: 0 flaxseed oil 1,400 mg 1,400 mg PO Q OTHER DAY RF: 0 furosemide 40 mg Tablet 40 mg PO BID RF: 0 carvedilol 12.5 mg Tablet 12.5 mg PO BID RF: 0 aspirin 325 mg Tablet 325 mg PO BEDTIME RF: 0 amlodipine 5 mg Tablet 5 mg PO BEDTIME RF: 0 tamsulosin 0.4 mg Capsule 0.4 mg PO BID RF: 0 pantoprazole 40 mg Tablet,Delayed Release (Dr/Ec) 40 mg PO BID RF: 0 allopurinol 300 mg Tablet 300 mg PO DAILY RF: 0 zolpidem 10 mg Tablet 10 mg PO BEDTIME PRN (Reason: Insomnia) RF: 0 docusate sodium 100 mg Tablet 200 mg PO DAILY RF: 0 finasteride 5 mg Tablet 5 mg PO BEDTIME RF: 0 potassium chloride 20 mEq Tablet Extended Release 20 meq PO DAILY RF: 0 fluoxetine 40 mg capsule 40 mg PO DAILY RF: 0 Referrals: Isai Hughes MD [Primary Care Provider] -
[2018-11-05] MEDS: ONDANSETRON 4 MG/2 ML INJ IV (14:02)
[2018-11-05] MEDS: SODIUM CHLORIDE 0.9% 1,000 ML 1000 ML IV (14:02)
[2018-11-05 14:30] VITALS: BP 103/69
--- NOTE | 2018-11-05 14:55 | ST.IPCSEOM ---
Care Team Visit Care Team Role Provider Type Isai Hughes MD Primary Care Provider Non-Staff Specialty: Internal Medicine Address: [address] [facility], [place], [address] Email: Lena Garcia MD Emergency Provider Physician Specialty: Emergency Medicine Address: [address] [place] [address], [id number] Email: Past Medical History (Last Reviewed 11/05/18 @ 13:54 by Lena Garcia MD) CKD (chronic kidney disease) stage 3, GFR 30-59 ml/min (Chronic Medical) Dyslipidemia (Chronic Medical) Hypertension (Chronic Medical) Speech-Language Pathology Swallow Evaluation [employer] Clinical Swallow Evaluation Start: 11/05/18 14:47 Freq: Status: Active Protocol: Document 11/05/18 14:47 TLC (Rec: 11/05/18 14:55 TLC [id number]) Clinical Swallow Evaluation Session Time Visit Start Time 14:20 Visit Stop Time 14:35 Total Visit Minutes 15 Setting Assessment Location Acute Care Visit Type Note Type Initial Evaluation Patient Information History Patient presented to the ER with chronic nausea and weight loss. He had an upper GI in November which showed esophageal dysmotility and mild GERD. He was put on Reglan for nausea, but developed diarrhea and stopped taking it. He currently takes Zofran for nausea, but reports he does not eat much and is getting progressively weaker. Subjective Observations Patient was seen in the emergency department. He was sitting up in bed finishing up an ensure drink. No family members present. He was alert, oriented and cooperative. Evaluation Liquids Trialed Thin Administration Type Self-Feeding Oral Impairment WFL Oral Phase Comments No oral phase dysphagia observed. Pharyngeal Impairment WFL Pharyngeal Phase Comments No signs of aspiration or pharyngeal impairments. Findings Dysphagia Type Esophageal Impressions Patient presents with moderate -severe esophageal dysphagia as determined by upper GI imaging. He does not show sings of oral or pharyngeal dysphagia. He is scheduled for an EGD in two weeks. Verbal education provided regarding strategies to compensate with current impairments. Strategies discussed include: consuming liquid and soft foods only, small bites/sips, alternate liquids/solids, smaller meals more frequently throughout the day, slow rate, upright position during and 30 minutes following meals, GERD precautions. Patient verbalized understanding. Aspiration Precautions Recommended Precautions Upright at 90 Degrees Alternate Liquids/Solids Frequent Rest Periods Small Bites/Sips Treatment Plan Placement Recommendations after Home Discharge Appropriate for Therapy No
[2018-11-05 15:52] VITALS: BP 113/72; PULSE 82; O2SAT 97
[2018-11-05 17:13] VITALS: BP 116/69; PULSE 88; RESP 18; O2SAT 96
== END 2018-11-05 17:14 | disposition home or self-care (01) ==
PROVIDERS: Emergency Provider Emergency Medicine; PCP Internal Medicine
DX: K22.4 Dyskinesia of esophagus (principal); R11.0 Nausea
CPT/HCPCS: 36591; 80053; 82550; 83690; 83880; 84484; 85025; 85610; 85730; 92610; 93005; 96361; 96374; 99283; 99284; J2405

== ENCOUNTER → 2018-11-19 09:28 | Outpatient (CLI) | payer MEDICARE, OTHER, SELFPAY ==
[2018-11-19 10:19] LABS: Add Manual Diff / Slide Review NO; Basophils Absolute Auto 0 /uL (0-100); Basophils Percent Auto 0.9 % (0-2); Eosinophils Absolute Auto 100 /uL (0-450); Eosinophils Percent Auto 3.1 % (2-4); Hematocrit 38.3 % (41-53); Hemoglobin 12.7 g/dL (13.5-17.5); Lymphocytes Absolute Auto 1300 /uL (1100-4500); Lymphocytes Percent Auto 27.8 % (25-40); Mean Corpuscular HGB Conc 33.1 % (30-36); Mean Corpuscular Volume 93.7 fL (80-100); Monocytes Absolute Auto 600 /uL (0-900); Monocytes Percent Auto 12.9 % (3-14); Neutrophils Absolute Auto 2500 /uL (1500-7000); Neutrophils Percent Auto 55.3 % (50-75); Platelet Count 160 X10^3/uL (150-400); Red Blood Cell Count 4.09 X10^6/uL (4.5-5.9); Red Cell Distribution Width 15.5 % (11.6-14.8); White Blood Cell Count 4.6 X10^3/uL (4.5-11.0)
[2018-11-19 10:35] LABS: Carbon Dioxide 30 mmol/L (22-32); Chloride 101 mmol/L (98-107); HEMOLYSIS < 15 (0-50); Potassium 4.3 mmol/L (3.4-5.1); Sodium 141 mmol/L (137-145)
== END ==
PROVIDERS: PCP Internal Medicine; Visit Provider Orthopaedic Surgery
DX: Z01.818 Encounter for other preprocedural examination (principal); M16.10 Unilateral primary osteoarthritis, unspecified hip; Z01.812 Encounter for preprocedural laboratory examination
CPT/HCPCS: 36415; 80051; 85025; 93005